=== PATIENT | female | born 2000 | race Caucasian/White ===

== ENCOUNTER 2025-05-28 13:08 | Inpatient (IN) | payer OTHER ==
[2025-05-28] MEDS ORDERED: Diphenoxylate HCl/Atropine Tablet PO PRN ×2 (21:28)
[2025-05-28] MEDS ORDERED: hydrALAZINE 20 MG/ML VIAL SLOW IVP PRN (21:28)
[2025-05-28] MEDS ORDERED: Ibuprofen 800 MG TAB PO PRN (21:28)
[2025-05-28] MEDS ORDERED: Lidocaine 1% (PF) 30 ML VIAL SC PRN (21:28)
[2025-05-28] MEDS ORDERED: Methylergonovine 0.2 MG/ML VIAL IM PRN (21:28)
[2025-05-28] MEDS ORDERED: Ondansetron PF 4 MG/2 ML Vial IVP PRN (21:28)
[2025-05-28] MEDS ORDERED: Carboprost 250 MCG/ML AMP IM PRN (21:28)
[2025-05-28] MEDS ORDERED: Oxytocin 30 units/NS 500 ML 500 ML IV SCH ×2 (21:30)
[2025-05-28 21:39] VITALS: BMI 31.2
[2025-05-28 21:52] LABS: Hematocrit 30.4 % (34.9-44.5); Hemoglobin 9.8 g/dL (12.0-15.5); Mean Corpuscular Hemoglobin 26.1 pg (27.0-33.0); Mean Corpuscular Volume 80.9 fL (81.6-98.3); Platelet Count 283 10x3/uL (150-450); Red Blood Cell (RBC) Count 3.76 10x6/uL (3.90-5.03); White Blood Cell (WBC) Count 8.75 10x3/uL (3.5-10.5)
[2025-05-28 22:25] LABS: Hep B Surf Ag - L&D Non-Reactive S/CO (NonReactive)
[2025-05-28 22:26] LABS: Syphilis Antibody Index 0.07 S/CO (<1.00 Non-Reactive)
== END 2025-05-29 23:20 | disposition home health service (06) | DRG 833 ==
LOC: CSHLD 20:31
PROVIDERS: ADMIT Family Medicine; ATTEND Family Medicine
PROC: 3E0DXGC Introduction of Other Therapeutic Substance into Mouth and Pharynx, External Approach (ICD-10-PCS; principal; 2025-05-28)
DX: O99.013 Anemia complicating pregnancy, third trimester (principal); O26.893 Other specified pregnancy related conditions, third trimester; Z67.41 Type O blood, Rh negative; Z79.899 Other long term (current) drug therapy; Z3A.39 39 weeks gestation of pregnancy
CPT/HCPCS: 36415; 85027; 86780; 86850; 86900; 86901; 87340; 99285

== ENCOUNTER 2025-05-30 15:24 | Inpatient (IN) | payer OTHER ==
[~2025-05-30 15:24] MED LIST: Bupivacaine 0.25% HCL 30 ML VIAL ONE
[2025-05-30] MEDS ORDERED: Carboprost 250 MCG/ML AMP IM PRN (16:19)
[2025-05-30] MEDS ORDERED: Lidocaine 1% (PF) 30 ML VIAL SC PRN (16:19)
[2025-05-30] MEDS ORDERED: Ondansetron PF 4 MG/2 ML Vial IVP PRN ×2 (16:19→19:38)
[2025-05-30] MEDS ORDERED: Diphenoxylate HCl/Atropine Tablet PO PRN ×2 (16:19)
[2025-05-30] MEDS ORDERED: Acetaminophen 500 MG TAB PO PRN (16:19)
[2025-05-30] MEDS ORDERED: Methylergonovine 0.2 MG/ML VIAL IM PRN ×2 (16:19→23:08)
[2025-05-30] MEDS ORDERED: hydrALAZINE 20 MG/ML VIAL SLOW IVP PRN ×2 (16:19→23:08)
[2025-05-30] MEDS ORDERED: Tranexamic Acid 1,000 MG/10 ML VIAL IVP PRN (16:19)
[2025-05-30] MEDS ORDERED: Oxytocin 30 units/NS 500 ML 500 ML IV SCH ×2 (16:30→23:15)
[2025-05-30] MEDS ORDERED: diphenhydrAMINE 50 MG/ML VIAL IVP PRN (19:38)
[2025-05-30] MEDS: fentaNYL/Ropivacaine Epidural 100 ML ONE (19:40)
[2025-05-30] MEDS ORDERED: fentaNYL 2 mcg/Ropivacaine 0.2% Epidural 100 ML CADD EPIDURAL SCH (19:45)
[2025-05-30] MEDS ORDERED: Communication Order-Pharmacy FS SCH (19:45)
[2025-05-30 20:10] VITALS: BMI 31.2
[2025-05-30] MEDS: Oxytocin 30 units/NS 500 ML 500 ML IV SCH (21:11)
[2025-05-30] MEDS ORDERED: Bisacodyl 10 MG SUPP PR PRN (23:08)
[2025-05-30] MEDS ORDERED: Milk Of Magnesia 30 ML UDCUP PO PRN (23:08)
[2025-05-30] MEDS ORDERED: Preparation H Ointment 28 GM TUBE PR PRN (23:08)
[2025-05-30] MEDS ORDERED: Lanolin Ointment 7 GM TUBE TOP PRN (23:08)
[2025-05-30] MEDS ORDERED: Boostrix 0.5 ML (Tdap) VIAL (>/=7 yrs of age) IM ONE (23:08)
[2025-05-30] MEDS ORDERED: diphenhydrAMINE 25 MG CAP PO PRN (23:08)
[2025-05-30] MEDS ORDERED: Methylergonovine 0.2 MG TAB PO PRN (23:08)
[2025-05-30] MEDS ORDERED: Benzocaine-Menthol 82.5 ML CAN TOP PRN (23:08)
[2025-05-30 23:47] LABS: Analyzer IN Cardio CS NICU; RapidComm Collect By RN; pH (Cord, venous) 7.375 (7.250-7.350)
[2025-05-30 23:51] LABS: Analyzer IN Cardio CS NICU; RapidComm Collect By RN
[2025-05-31] MEDS: Oxytocin 30 units/NS 500 ML 500 ML IV SCH (00:15)
[2025-05-31] MEDS: Ibuprofen 800 MG TAB PO PRN (01:06)
[2025-05-31] MEDS: Acetaminophen 325 MG TAB PO PRN (04:15)
[2025-05-31 05:41] LABS: Hematocrit 30.0 % (34.9-44.5); Hemoglobin 9.5 g/dL (12.0-15.5)
[2025-05-31] MEDS: HYDROcodone/Acetaminophen 5/325 mg Tablet PO SCH (05:50)
[2025-05-31] MEDS ORDERED: Ibuprofen 800 MG TAB PO SCH (06:00)
[2025-05-31 07:50] VITALS: BP 121/62; TEMP 98.2
[2025-05-31] MEDS ORDERED: Ferrous Sulfate 325 MG TAB PO SCH (08:00)
== END 2025-05-31 10:00 | disposition home or self-care (01) | DRG 807 ==
LOC: CSHLD/OP 15:24 → CSHLD 16:31 → CSHPP 05-31 03:05
PROVIDERS: ADMIT Family Medicine; ATTEND Family Medicine
PROC: 10E0XZZ Delivery of Products of Conception, External Approach (ICD-10-PCS; principal; 2025-05-30)
PROC: 3E0P7VZ Introduction of Hormone into Female Reproductive, Via Natural or Artificial Opening (ICD-10-PCS; 2025-05-30)
PROC: 10907ZC Drainage of Amniotic Fluid, Therapeutic from Products of Conception, Via Natural or Artificial Opening (ICD-10-PCS; 2025-05-30)
PROC: 0HQ9XZZ Repair Perineum Skin, External Approach (ICD-10-PCS; 2025-05-30)
PROC: 3E0334Z Introduction of Serum, Toxoid and Vaccine into Peripheral Vein, Percutaneous Approach (ICD-10-PCS; 2025-05-31)
DX: O99.02 Anemia complicating childbirth (principal); Z37.0 Single live birth; D50.9 Iron deficiency anemia, unspecified; O26.893 Other specified pregnancy related conditions, third trimester; Z67.41 Type O blood, Rh negative; Z3A.39 39 weeks gestation of pregnancy; O70.0 First degree perineal laceration during delivery
CPT/HCPCS: 36415; 51702; 82805; 85014; 85018; 85461; 90384; 96372; 99285; J0665; J2590; J7120